=== PATIENT | male | born 1990 | race Two or more races ===

== ENCOUNTER 2018-04-22 17:28 | Emergency (ER) | payer SELFPAY ==
[~2018-04-22] VITALS: Ht 172.7 cm; Wt 50.3 kg
[2018-04-22] MEDS ORDERED: fentaNYL PF VIAL 100 MCG/2 ML VIAL IV ONE (18:00)
[2018-04-22] MEDS ORDERED: ONDANSETRON PF 4 MG/2 ML VIAL. IV ONE (18:00)
--- NOTE | 2018-04-22 18:29 | RAD ---
Three-view left hand radiographs 04/22/2018 CLINICAL HISTORY: Nail gun accident. PA, lateral and oblique digital radiographs of the left hand were obtained. A 4 cm in length nail is seen. The distal aspect of this nail extends through the skin surface of the dorsal soft tissues at the level of the left wrist joint. The proximal portion of the nail extends in an oblique fashion laterally, anteriorly and inferiorly. It appears to course through the mid carpal joint without a definite fracture seen. No additional radiopaque foreign body is noted. IMPRESSION: A nail is seen within the left wrist as outlined above. No acute fracture is seen. Electronically signed by: Jim Harrell MD (04/22/2018 6:26 PM) [facility]
[2018-04-22] MEDS ORDERED: TETANUS AND DIPHTHERIA TOX/PF 0.5 ML DISP.SYRIN. VAX IM ONE (18:30)
[2018-04-22 19:00] VITALS: BP 121/71
[2018-04-22] MEDS ORDERED: MORPHINE SULFATE 4 MG/ML VIAL. IV ONE (19:00)
--- NOTE | 2018-04-22 19:07 | PHYS DOC ---
Past Medical History Past Medical History: No Pertinent History Past Surgical History: No Surgical History Alcohol Use: None Drug Use: None Adult General Chief Complaint Chief Complaint: UPPER EXTREMITY INJURY HPI HPI Patient is a 28 year old M who presents with a nail in the left hand thru to the wrist. Patient reports he was using a nail gun for trim and a nail shot into his left hand. He is unsure of his last tetanus shot. He last ate at 1300. No numbness or tingling. Review of Systems Review of Systems Constitutional: Denies fever or chills [] Respiratory: Denies cough or shortness of breath [] Cardiovascular: No additional information not addressed in HPI [] Musculoskeletal: FB in left palm angling down to wrist Integument: puncture wound left palm Neurologic: Denies focal weakness or sensory changes [] All other systems were reviewed and found to be within normal limits, except as documented in this note. Current Medications Current Medications Current Medications Medications (Trade) Dose Ordered Sig/William Start Time Stop Time Status Last Admin Dose Admin Fentanyl Citrate (Fentanyl 2ml Vial) 50 mcg 1X ONCE 04/22/18 18:00 04/22/18 18:01 DC 04/22/18 17:59 50 MCG Morphine Sulfate (Morphine Sulfate) 4 mg 1X ONCE 04/22/18 19:00 04/22/18 19:01 DC 04/22/18 19:05 4 MG Ondansetron HCl (Zofran) 4 mg 1X ONCE 04/22/18 18:00 04/22/18 18:01 DC 04/22/18 17:57 4 MG Tetanus/ Diphtheria Toxoids (Tenivac Syringe) 0.5 ml ONCE ONCE 04/22/18 18:30 04/22/18 18:31 DC 04/22/18 18:55 0.5 ML Allergies Allergies Allergies Coded Allergies Type Severity Reaction Last Updated Verified No Known Drug Allergies 04/22/18 No Physical Exam Physical Exam Constitutional: Well developed, well nourished, no acute distress, non-toxic appearance. [] HENT: Normocephalic, atraumatic Eyes: PERRLA, EOMI, conjunctiva normal, no discharge. [] Neck: Normal range of motion, no tenderness, supple, no stridor. [] Skin: Warm, dry, puncture wound to left hand Extremities: Tenderness to left hand, FB present, good sensation to fingers, unable to move wrist d/t FB Neurologic: Alert and oriented X 3, normal sensory function Psychologic: Affect normal, judgement normal, mood normal. [] Current Patient Data Vital Signs Vital Signs Date Time Temp Pulse Resp B/P (MAP) Pulse Ox O2 Delivery O2 Flow Rate FiO2 04/22/18 19:05 16 100 Room Air 04/22/18 17:30 98.2 73 145/92 (109) 98.2 EKG EKG [] Radiology/Procedures Radiology/Procedures PATIENT: MARIA LUISA REALACCOUNT: [id number]#: [id number] : 1990 LOCATION: ER AGE: 28 SEX: M EXAM STATUS: REG ER ORD. PHYSICIAN: ELSY CASTAÑEDA APRN REASON: pain, fb PROCEDURE: HAND LEFT 3V Three-view left hand radiographs 04/22/2018 CLINICAL HISTORY: Nail gun accident. PA, lateral and oblique digital radiographs of the left hand were obtained. A 4 cm in length nail is seen. The distal aspect of this nail extends through the skin surface of the dorsal soft tissues at the level of the left wrist joint. The proximal portion of the nail extends in an oblique fashion laterally, anteriorly and inferiorly. It appears to course through the mid carpal joint without a definite fracture seen. No additional radiopaque foreign body is noted. IMPRESSION: A nail is seen within the left wrist as outlined above. No acute fracture is seen. Electronically signed by: Jim Cuellar MD (04/22/2018 6:26 PM) [facility] DICTATED and SIGNED BY: JIM CUELLAR MD DATE: 04/22/18 182 [] Course & Med Decision Making Course & Med Decision Making Pertinent Labs and Imaging studies reviewed. (See chart for details) D/w [facility], accepts patient in transfer to ED. Plan: to [facility] Dragmoise Disclaimer Dragon Disclaimer This electronic medical record was generated, in whole or in part, using a voice recognition dictation system. Departure Departure Impression: Primary Impression: Foreign body hand Disposition: 02 TRANSFER [facility] ([facility] ED) Condition: STABLE Referrals: NO PCP (PCP) ELSY CASTAÑEDA APRN Apr 22, 2018 19:07
== END 2018-04-22 20:14 | disposition short-term general hospital (02) ==
LOC: ER 17:28
DX: S61.442A Puncture wound with foreign body of left hand, initial encounter (principal); X58.XXXA Exposure to other specified factors, initial encounter; Y93.89 Activity, other specified; Y92.89 Other specified places as the place of occurrence of the external cause; Y99.8 Other external cause status
CPT/HCPCS: 73130; 90471; 90714; 96374; 96375; 99285; J2270; J2405; J3010